=== PATIENT | female | born 1950 | race Caucasian/White ===

== ENCOUNTER 2019-05-28 16:19 | Inpatient (IN) | payer OTHER, MEDICARE ==
[2019-05-28 16:53] LABS: #Eosinphils 0.1 thou/uL (0.0-0.7); #Lymphocytes 1.2 thou/uL (1.20-3.40); #Monocytes 0.7 thou/uL (0.11-0.59); #Neutrophils 8.7 thou/uL (1.40-6.50); %Basophils 0.2 % (0.0-1.0); %Eosinophils 0.6 % (0.0-10.0); %Lymphocytes 11.3 % (21.0-51.0); %Monocytes 6.4 % (0.0-10.0); %Neutrophils 81.4 % (42.0-75.0); Hemoglobin 10.5 g/dL (12.0-16.0); Mean Corpuscular HGB CONC 34.1 g/dL (32.0-36.0); Mean Corpuscular Hemoglobin 29.8 pg (27.0-31.0); Mean Corpuscular Volume 87.3 fL (78.0-98.0); Platelet Count 178 thou/uL (130-400); RBC Distribution Width 12.2 % (11.5-14.5); Red Blood Cell (RBC) Count 3.51 mill/uL (4.20-5.40); White Blood Cell (WBC) Count 10.6 thou/uL (4.8-10.8)
[2019-05-28 17:07] LABS: ALT (SGPT) 17 U/L (8-55); AST (SGOT) 33 U/L (5-34); Albumin 3.4 g/dL (3.4-4.8); Alkaline Phosphatase 67 U/L (40-110); Anion Gap 14 mmol/L (10-20); BUN (Urea Nitrogen) 24 mg/dL (9.8-20.1); Bilirubin, Total 0.5 mg/dL (0.2-1.2); Calc. Creatinine Clearance 0 mL/min (70-130); Calcium 8.6 mg/dL (7.8-10.44); Carbon Dioxide 17 mmol/L (23-31); Chloride 109 mmol/L (98-107); Estimated GFR-MDRD 67; Globulin 2.6 g/dL (2.4-3.5); Glucose 254 mg/dL (80-115); Magnesium 1.8 mg/dL (1.6-2.6); Potassium 3.8 mmol/L (3.5-5.1); Sodium 136 mmol/L (136-145)
[2019-05-28 17:39] LABS: CKMB 22.1 ng/mL (0-6.6)
[2019-05-28] MEDS ORDERED: Senokot S 8.6-50 MG TAB PO PRN (19:41)
[2019-05-28] MEDS ORDERED: Sodium Chloride 0.9% 1,000 ML IV SCH (19:45)
[2019-05-28] MEDS ORDERED: Dextrose 50% Abboject 50 ML SYRINGE SLOW IVP PRN (19:46)
[2019-05-28] MEDS ORDERED: HumaLOG 300 UNITS/3 ML VIAL SC PRN ×2 (19:46)
[2019-05-28] MEDS ORDERED: Dextrose 5% in Water 1,000 ML IV PRN (19:46)
[2019-05-28] MEDS ORDERED: Magnesium 2 GM/50 ML BAG (IN WATER) ONE (19:54)
[2019-05-28] MEDS ORDERED: Diltiazem HCl 125 MG, Admixture Fee 1 EACH in Sodium Chloride 0.9% 100 ML IVPB SCH (20:15)
[2019-05-28 20:16] LABS: Troponin I 10.823 ng/mL (< 0.028)
[2019-05-28 20:55] VITALS: BMI 26.4
[2019-05-28] MEDS ORDERED: Diabetic Tussin 200 MG/10 ML UDCUP PO PRN (21:41)
--- NOTE | 2019-05-28 22:24 | PDOC.HHP ---
Hospitalist HPI - History of Present Illness Chest Pressure History of Present Illness: 69F presents to the ED as a transfer from [place] [facility] where she was seen for chest pressure since last night. EKG with A flutter which improved with a dose of cardizem and then transferred here after she received a dose of cardizem, lovenox, ASA and plavix. Has history of Aflutter in the past and was cardioverted about 18 months ago. Daughter reports Dr. Bliss recommended an Ablation at that time but she refused. Hx of DM. ED Course: Patient was transferred here from [place] ED, was in NSR on arrival, initial troponin at [place] elevated, 2nd troponin 8.1. Denied chest pain on arrival. Hospitalist ROS - Review of Systems Constitutional: denies: fever, chills, sweats, weakness, malaise, other Eyes: denies: pain, vision change, conjunctivae inflammation, eyelid inflammation, redness, other ENT: denies: ear pain, ear discharge, nose pain, nose discharge, nose congestion , mouth pain, mouth swelling, throat pain, throat swelling, other Respiratory: denies: cough, dry, shortness of breath, hemoptysis, SOB with excertion, pleuritic pain, sputum, wheezing, other Cardiovascular: reports: chest pain Gastrointestinal: denies: nausea, vomiting, abdominal pain, diarrhea, constipation, melena, hematochezia, other Genitourinary: denies: dysuria, frequency, incontinence, hematuria, retention, other Musculoskeletal: denies: neck pain, shoulder pain, arm pain, back pain, hand pain, leg pain, foot pain, other Skin: denies: rash, lesions, jessi, bruising, other Neurological: denies: weakness, numbness, incoordination, change in speech, confusion, seizures, other Hospitalist History - Past Medical History Cardiac: reports: Other (Atrial Flutter) Endocrine: reports: Diabetes - Past Surgical History Past Surgical History: reports: Appendectomy, Hysterectomy - Social History Alcohol: reports: None Drugs: reports: none Living Situation: With Family - Exam Eye: PERRL ENT: normocephalic atraumatic Neck: supple, no JVD Heart: RRR, normal peripheral pulses Respiratory: CTAB, normal chest expansion Gastrointestinal: soft, non-tender Extremities: no edema Skin: normal turgor Neurological: no focal deficits Musculoskeletal: normal strength Psychiatric: normal affect, A&O x 3 Hospitalist Results - Labs Result Diagrams: 05/28/19 16:43 05/28/19 16:43 Lab results: WBC 10.6 thou/uL (4.8-10.8) 05/28/19 16:43 Hgb 10.5 g/dL (12.0-16.0) L 05/28/19 16:43 Hct 30.6 % (36.0-47.0) L 05/28/19 16:43 MCV 87.3 fL (78.0-98.0) 05/28/19 16:43 Plt Count 178 thou/uL (130-400) 05/28/19 16:43 Neutrophils % 81.4 % (42.0-75.0) H 05/28/19 16:43 Sodium 136 mmol/L (136-145) 05/28/19 16:43 Potassium 3.8 mmol/L (3.5-5.1) 05/28/19 16:43 Chloride 109 mmol/L (98-107) H 05/28/19 16:43 Carbon Dioxide 17 mmol/L (23-31) L 05/28/19 16:43 BUN 24 mg/dL (9.8-20.1) H 05/28/19 16:43 Creatinine 0.84 mg/dL (0.6-1.1) 05/28/19 16:43 Glucose 254 mg/dL (80-115) H 05/28/19 16:43 Calcium 8.6 mg/dL (7.8-10.44) 05/28/19 16:43 Total Bilirubin 0.5 mg/dL (0.2-1.2) 05/28/19 16:43 AST 33 U/L (5-34) 05/28/19 16:43 ALT 17 U/L (8-55) 05/28/19 16:43 Alkaline Phosphatase 67 U/L (40-110) 05/28/19 16:43 CK-MB (CK-2) 22.1 ng/mL (0-6.6) H* 05/28/19 16:43 Troponin I 10.823 ng/mL (< 0.028) H* 05/28/19 19:38 Serum Total Protein 6.0 g/dL (6.0-8.3) 05/28/19 16:43 Albumin 3.4 g/dL (3.4-4.8) 05/28/19 16:43 Hospitalist H&P A/P - Problem (1) Flutter-fibrillation Code(s): I48.91 - UNSPECIFIED ATRIAL FIBRILLATION; I48.92 - UNSPECIFIED ATRIAL FLUTTER Status: Acute (2) Diabetes mellitus Code(s): E11.9 - TYPE 2 DIABETES MELLITUS WITHOUT COMPLICATIONS Status: Chronic (3) NSTEMI (non-ST elevated myocardial infarction) Code(s): I21.4 - NON-ST ELEVATION (NSTEMI) MYOCARDIAL INFARCTION Status: Acute - Plan Plan: Cardiology consult Lovenox at 1mg/kg Accuchecks ACHS with SS for coverage ASA 325mg po daily Check Mag, TSH, lipids Recheck basMet and CBC in AM Pepcid for GI prevention Case discussed with Dr. Pierce, agrees with plan
[2019-05-28] MEDS: Enoxaparin Sodium 60 MG/0.6 ML SYRINGE SC SCH (22:45)
[2019-05-28] MEDS: Famotidine 20 MG TAB PO SCH (22:46)
[2019-05-28 23:27] LABS: Critical Call Chem Troponin I RESULT DECREASING; Troponin I 9.428 ng/mL (< 0.028)
[2019-05-29] MEDS: Acetaminophen 325 MG TAB PO PRN ×3 (04:07→18:42)
[2019-05-29 04:53] LABS: #Lymphocytes 1.1 thou/uL (1.20-3.40); #Monocytes 0.5 thou/uL (0.11-0.59); #Neutrophils 7.2 thou/uL (1.40-6.50); %Basophils 0.5 % (0.0-1.0); %Eosinophils 0.3 % (0.0-10.0); %Lymphocytes 12.4 % (21.0-51.0); %Monocytes 5.9 % (0.0-10.0); %Neutrophils 80.9 % (42.0-75.0); Hemoglobin 11.2 g/dL (12.0-16.0); Mean Corpuscular HGB CONC 34.7 g/dL (32.0-36.0); Mean Corpuscular Hemoglobin 30.1 pg (27.0-31.0); Mean Corpuscular Volume 86.9 fL (78.0-98.0); Mean Platelet Volume 11.1 fL (7.4-10.4); Platelet Count 179 thou/uL (130-400); RBC Distribution Width 12.2 % (11.5-14.5); Red Blood Cell (RBC) Count 3.71 mill/uL (4.20-5.40); White Blood Cell (WBC) Count 8.9 thou/uL (4.8-10.8)
[2019-05-29 05:11] LABS: ALT (SGPT) 28 U/L (8-55); AST (SGOT) 32 U/L (5-34); Albumin 3.5 g/dL (3.4-4.8); Alkaline Phosphatase 77 U/L (40-110); Anion Gap 12 mmol/L (10-20); BUN (Urea Nitrogen) 18 mg/dL (9.8-20.1); Bilirubin, Total 0.6 mg/dL (0.2-1.2); Calc. Creatinine Clearance 63 mL/min (70-130); Calcium 8.6 mg/dL (7.8-10.44); Carbon Dioxide 20 mmol/L (23-31); Chloride 108 mmol/L (98-107); Cholesterol 259 mg/dl (< 200 Desired); Estimated GFR-MDRD 72; Globulin 2.7 g/dL (2.4-3.5); Glucose 238 mg/dL (80-115); HDL Cholesterol 43 mg/dL (>60 Neg Risk); LDL Cholesterol, Calculated 190 mg/dL; Potassium 4.1 mmol/L (3.5-5.1); Protein, Total 6.2 g/dL (6.0-8.3); Sodium 136 mmol/L (136-145); Triglycerides 132 mg/dL (Less than 150)
[2019-05-29] MEDS: Enoxaparin Sodium 60 MG/0.6 ML SYRINGE SC SCH ×2 (09:04→19:47)
[2019-05-29] MEDS: Aspirin 325 mg Enteric Coated Tablet PO SCH (09:06)
[2019-05-29] MEDS: Famotidine 20 MG TAB PO SCH ×2 (09:06→19:47)
[2019-05-29] MEDS ORDERED: glipiZIDE 5 MG TAB PO SCH (10:30)
[2019-05-29] MEDS ORDERED: Alogliptin 25 MG TAB PO SCH (10:45)
[2019-05-29] MEDS ORDERED: Diltiazem 125 MG in Sodium Chloride 0.9% 100 ML IVPB SCH (12:45)
[2019-05-29] MEDS ORDERED: Metoprolol Tartrate 25 MG TAB PO SCH (12:45)
[2019-05-29] MEDS ORDERED: Nitroglycerin 0.4 MG TAB (25 Tab Bottle) PO PRN (12:47)
--- NOTE | 2019-05-29 14:11 | PRG ---
DATE OF SERVICE: 05/29/2019 PRIMARY CARE PHYSICIAN: Dr. Matthew Laguna. SUBJECTIVE: A 69-year-old female with diabetes mellitus type 2, hypertension, presented to the hospital with chest discomfort along with tachyarrhythmia. She was found to have atrial flutter with rapid ventricular response. She normally follows Dr. Bliss. She intermittently goes into RVR. She denies any chest pain at this time. No lightheadedness or dizziness reported. REVIEW OF SYSTEMS: All other review of systems was reviewed and was found negative. CURRENT MEDICATIONS: Reviewed. The patient is on 1 mg/kg Lovenox. PHYSICAL EXAMINATION: VITAL SIGNS: Temperature 98.4, pulse rate of 90, respirations of 17, blood pressure of 109/64 with O2 saturation of 100% on 2 L nasal cannula. GENERAL: A 69-year-old female, in no apparent distress. LUNGS: Clear to auscultation bilaterally. No wheezing, rales, or rhonchi. HEART: S1 and S2 present. Regular rate and rhythm. No rubs or gallops. LUNGS: Clear to auscultation bilaterally. No wheezing, rales, or rhonchi. ABDOMEN: Soft and nontender. Bowel sounds present. No rebound or guarding. EXTREMITIES: No edema or calf tenderness. NEUROLOGIC: Grossly nonfocal. LABORATORY FINDINGS: CBC showed WBC 8.9 with hemoglobin 11.2, platelet 179. D-dimer was 0.58. Troponin maximum was 10.8. Creatinine 0.79 with BUN 18, sodium 136, potassium 4.1. TSH was normal. Cholesterol 259 with LDL 190. Telemetry monitoring by my review showed intermittent atrial flutter with rapid ventricular response. IMPRESSION: 1. Atrial flutter with rapid ventricular response. 2. Chest discomfort secondary to #1. 3. Elevated troponin secondary to #1/type 2 myocardial infarction present on admission. 4. Diabetes mellitus, type 2. 5. Chronic kidney disease, stage 2. 6. Chronic anemia. 7. Hyperlipidemia. PLAN: The patient will be monitored on the telemetry unit. We will start her on Cardizem drip. We will start low-dose beta blockers. Cardiology has been consulted. We will continue 1 mg/kg of Lovenox. We will resume glipizide and Januvia. Continue sliding scale. Echocardiogram is pending at this time. We will keep her n.p.o. past midnight. The patient understands the risk associated with anticoagulation. She also understands the above plan of care. Job ID: [id number]
--- NOTE | 2019-05-29 14:20 | PDOC.CPN ---
- Subjective Date: 05/29/19 Time: 14:26 Interval history: The pt seen and examined. No overnight events. No cardiac complaints. - Objective Allergies/Adverse Reactions: Allergies Allergy/AdvReac Type Severity Reaction Status Date / Time No Known Allergies Allergy Verified 05/29/19 03:49 Visit Medications: Current Medications Acetaminophen (Tylenol) 650 mg PO Q4H PRN PRN Reason: Headache/Fever/Mild Pain (1-3) Last Admin: 05/29/19 09:10 Dose: 650 mg Alogliptin Benzoate (Alogliptin) 25 mg PO DAILY [facility] Aspirin (Ecotrin) 325 mg PO DAILY [facility] Last Admin: 05/29/19 09:06 Dose: 325 mg Atorvastatin Calcium (Lipitor) 40 mg PO [facility] Dextrose/Water (Dextrose 50%) 25 gm SLOW IVP PRN PRN PRN Reason: Hypoglycemia Diltiazem HCl (Cardizem) 5 mg SLOW IVP NOW [facility] Stop: 05/29/19 14:45 Last Admin: 05/29/19 12:50 Dose: 5 mg Enoxaparin Sodium (Lovenox) 60 mg SC 0900,2100 [facility] Last Admin: 05/29/19 09:04 Dose: Not Given Famotidine (Pepcid) 20 mg PO BID [facility] Last Admin: 05/29/19 09:06 Dose: 20 mg Glipizide (Glucotrol) 5 mg PO BID-[facility] Glucagon (Glucagon) 1 mg IM PRN PRN PRN Reason: Hypoglycemia Guaifenesin (Robitussin Sf) 200 mg PO Q4H PRN PRN Reason: Cough Last Admin: 05/28/19 22:43 Dose: 200 mg Dextrose/Water (D5w) 1,000 mls @ 0 mls/hr IV .Q0M PRN PRN Reason: Hypoglycemia Diltiazem HCl 125 mg/ Sodium (Chloride) 125 mls @ 5 mls/hr IVPB INF [facility]; Protocol Insulin Human Lispro (Humalog) 0 units SC .MILD SLIDING SCALE PRN PRN Reason: Mild Correctional Scale Insulin Human Lispro (Humalog) 0 units SC .BEDTIME SLIDING SC PRN PRN Reason: Bedtime Correctional Scale Metoprolol Tartrate (Lopressor) 25 mg PO BID [facility] Metoprolol Tartrate (Lopressor) 25 mg PO NOW [facility] Stop: 05/29/19 14:45 Last Admin: 05/29/19 12:50 Dose: 25 mg Nitroglycerin (Nitrostat) 0.4 mg PO Q5MIN PRN PRN Reason: Chest Pain Senna/Docusate Sodium (Senokot S) 2 tab PO BID PRN PRN Reason: Constipation Vital Signs & Weight: Vital Signs Temp Pulse Resp BP Pulse Ox 05/29/19 11:03 98.4 F 90 17 101/58 L 100 05/29/19 07:10 100 05/29/19 07:00 98.1 F 82 15 109/64 100 05/29/19 03:56 98.8 F 98 18 124/65 95 Weight 131 lb 3.2 oz - Physical Exam General: alert & oriented x3 HEENT: mucus membranes moist Neck: supple neck Cardiac: regular rate and rhythm, S1/S2 Lungs: clear to auscultation Neuro: cranial nerve 2-12 intact - Labs Result Diagrams: 05/29/19 04:17 05/29/19 04:17 Troponin/CKMB CK-MB (CK-2) 22.1 ng/mL (0-6.6) H* 05/28/19 16:43 Troponin I 9.428 ng/mL (< 0.028) H* 05/28/19 22:43 - Telemetry Sinus rhythms and dysrhythmias: sinus rhythm - Assessment/Plan Assessment/Plan: 1. Aflutter with RVR for 2 hrs on 05/29/2019 - converted back to SR around 1400 on 05/29/2019; on Metoprolol 25mg BID; on Lovenox; Echo result is pending 2. Elevated trop - may need further cardiac eval when her VS is more stable; on ASA,Lovenox, BBlocker 3. HLD - LDL is > 190; Lipitor 40mg was started from today DM type 2 - managed by PCP 3. Anemia MAR reviewed * Dr Bliss's pt
[2019-05-29] MEDS: glipiZIDE 5 MG TAB PO SCH (16:17)
[2019-05-29] MEDS: Metoprolol Tartrate 25 MG TAB PO SCH (19:46)
[2019-05-29] MEDS: Atorvastatin Calcium 40 MG TAB PO SCH (19:47)
--- NOTE | 2019-05-30 03:36 | CON ---
DATE OF CONSULTATION: 05/29/2019 INDICATION FOR CONSULTATION: A 69-year-old female with new onset atrial tachycardia or atrial flutter with rapid ventricular response and chest tightness. HISTORY OF PRESENT ILLNESS: This 69-year-old female has been seen in the past back in 2016, at which time, she was having some tachycardia at that time, also sought to be atrial tachycardia or atrial flutter. She was advised to undergo an ablation, but she opted just to continue with medical management. She was somewhat afraid to undergo the procedure. She was last seen in the office by Dr. Bliss in January of 2017, at which time, she was taking medications just metoprolol. She was taking 12.5 mg twice a day and since that time she has had intermittent atrial tachycardia or either atrial flutter. It lasts for a short period of time, but yesterday apparently the episodes lasted longer, and she presented to the emergency room and then was given IV diltiazem, and the rate converted back to sinus rhythm but then again returned to the atrial tachycardia, and she was then transferred here and was admitted. Since this morning, she had one episode from noon to 2 o'clock and then again has themselves converted back to sinus rhythm and has remained in sinus rhythm at this time. She did have some chest tightness during the procedure with the chest discomfort, and she did have an elevated troponin I. This morning her troponin I is 9.4, on admission it was already 8.1, increased up to 10.8, and back down to 9.8. Her MB was 22.1. Certainly could be compatible with tachycardia or she may have underlying coronary artery disease with what appeared to be a [id number] elevation or type 2 myocardial infarction. She did not have any EKG changes to indicate ischemia. There were no ST-segment changes noted. At this time, she remains comfortable as long as she is not having the pain. The tachycardia, she seems to be relatively stable. I had discussion with her today about proceeding most likely with an ablation of the atrial tachycardia, but she also may need to undergo a repeat stress test. This was normal in 2016, but given her chest pressure and the abnormal cardiac enzymes, she may need to undergo cardiac catheterization to truly evaluate whether or not she may have underlying coronary artery disease as this could be the etiology of the repeat episodes of the atrial tachycardia or atrial flutter. PAST MEDICAL HISTORY: Significant for the atrial tachycardia or atrial flutter. She also has history of diabetes. PAST SURGICAL HISTORY: She has had hysterectomy and appendectomy. SOCIAL HISTORY: There is no history of alcohol or tobacco abuse. She lives at home with her family. 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 REVIEW OF SYSTEMS: Relatively unremarkable except what is noted in the history of present illness. FAMILY HISTORY: Unremarkable. PHYSICAL EXAMINATION: GENERAL: Reveals a well-developed, well-nourished female, in no acute distress. She is alert. She is oriented. She is very pleasant. She has no complaints at this time. VITAL SIGNS: Her vital signs are stable. Blood pressure is 112/55, heart rates in the 80s, it shows a sinus rhythm, and respiratory rate is 18. She is afebrile. HEENT: Shows the head to be normocephalic and atraumatic. Carotid pulses are present without any bruits. CHEST: Clear to auscultation without rales, rhonchi, or wheezing. CARDIOVASCULAR: At this time reveals a regular rate and rhythm. She has a normal S1, S2. There was no significant S3 or S4. There are no significant murmurs, heaves, thrills, bruits, or rubs. ABDOMEN: Soft, nontender. Positive bowel sounds are present. No organomegaly or masses are noted. EXTREMITIES: Femoral pulses are present. Pedal pulses are present. NEUROLOGICAL: She appears to be fully intact. LABORATORY DATA: Laboratory data is noted for the cardiac enzymes. Otherwise, the sodium was 136, potassium was 4.1, BUN was 18 with a creatinine of 0.79, blood sugar was 238, total cholesterol was 259. Her LDL level also was significantly elevated at 190, HDL level was 43, hemoglobin was 11.2, WBC of 8.9, and platelet count was 179,000. IMPRESSION: 1. Atrial tachycardia or atrial flutter associated with some chest tightness. We are trying to control the heart rate at this time with medical management most likely she will need to undergo an ablation of the atrial tachycardia or atrial flutter. Long-term will be the best option. At this time, we will continue her p.o. diltiazem or a IV drip as long she is able to tolerate it. She was also started on low-dose of metoprolol. We will continue the Lovenox. Also discussed her case with Dr. Bliss. She may need to undergo cardiac catheterization, especially with the elevated cardiac enzymes and the chest pressure associated with the atrial tachycardia or flutter. I will keep her n.p.o. after midnight for possible cardiac catheterization tomorrow. Also Dr. Bliss can discuss with Dr. Butler about proceeding with possible ablation once she has been ruled out for underlying coronary artery disease. 2. Diabetes. This will be dealt with by the primary care service. 3. Hypercholesterolemia. She will continue on her statin medications. 4. Her elevated cholesterol and LDL is significantly elevated at 190. It is uncertain whether or not she has actually been taking her medications, but will certainly need to be on statin to decrease the LDL level. Overall, given her history of atrial tachycardia or flutter with chest tightness, diabetes, and hypercholesterolemia will suggest she undergo a cardiac catheterization and then most likely need to undergo an ablation of the atrial tachycardia. Job ID: [id number]
[2019-05-30 04:36] LABS: #Lymphocytes 1.2 thou/uL (1.20-3.40); #Monocytes 0.7 thou/uL (0.11-0.59); #Neutrophils 7.2 thou/uL (1.40-6.50); %Basophils 0.1 % (0.0-1.0); %Eosinophils 0.4 % (0.0-10.0); %Lymphocytes 13.1 % (21.0-51.0); %Monocytes 7.6 % (0.0-10.0); %Neutrophils 78.9 % (42.0-75.0); Hemoglobin 10.4 g/dL (12.0-16.0); Mean Corpuscular HGB CONC 34.1 g/dL (32.0-36.0); Mean Corpuscular Hemoglobin 29.7 pg (27.0-31.0); Mean Corpuscular Volume 87.2 fL (78.0-98.0); Mean Platelet Volume 10.9 fL (7.4-10.4); Platelet Count 182 thou/uL (130-400); RBC Distribution Width 12.3 % (11.5-14.5); White Blood Cell (WBC) Count 9.2 thou/uL (4.8-10.8)
[2019-05-30 04:57] LABS: ALT (SGPT) 50 U/L (8-55); AST (SGOT) 39 U/L (5-34); Albumin 3.4 g/dL (3.4-4.8); Alkaline Phosphatase 90 U/L (40-110); Anion Gap 11 mmol/L (10-20); BUN (Urea Nitrogen) 18 mg/dL (9.8-20.1); Bilirubin, Total 0.8 mg/dL (0.2-1.2); Calc. Creatinine Clearance 57 mL/min (70-130); Calcium 8.7 mg/dL (7.8-10.44); Carbon Dioxide 21 mmol/L (23-31); Chloride 108 mmol/L (98-107); Estimated GFR-MDRD 64; Globulin 2.7 g/dL (2.4-3.5); Glucose 195 mg/dL (80-115); Potassium 3.9 mmol/L (3.5-5.1); Protein, Total 6.1 g/dL (6.0-8.3); Sodium 136 mmol/L (136-145)
[2019-05-30] MEDS: Alogliptin 25 MG TAB PO SCH (05:50)
[2019-05-30] MEDS: glipiZIDE 5 MG TAB PO SCH ×2 (05:50→17:09)
[2019-05-30] MEDS: Enoxaparin Sodium 60 MG/0.6 ML SYRINGE SC SCH ×2 (05:50→19:54)
[2019-05-30] MEDS: Famotidine 20 MG TAB PO SCH ×2 (05:51→19:53)
[2019-05-30] MEDS: Metoprolol Tartrate 25 MG TAB PO SCH ×2 (05:52→19:53)
[2019-05-30] MEDS: Aspirin 325 mg Enteric Coated Tablet PO SCH (05:52)
[2019-05-30] MEDS ORDERED: FARXIGA 5 MG PO SCH (09:00)
[2019-05-30] MEDS ORDERED: Lidocaine 1% (PF) 30 ML VIAL ONE (10:18)
[2019-05-30] MEDS ORDERED: Fentanyl 100 MCG/2 ML VIAL ONE (10:45)
[2019-05-30] MEDS ORDERED: Midazolam HCl 2 mg/2 ml Vial ONE (10:45)
[2019-05-30] MEDS ORDERED: Sodium Chloride 0.9% 200 ML IV PRN (11:11)
[2019-05-30] MEDS ORDERED: Acetaminophen/Codeine 30-300mg Tablet PO PRN (11:11)
[2019-05-30] MEDS ORDERED: Sodium Chloride 0.9% 500 ML IV SCH (11:15)
[2019-05-30] MEDS ORDERED: Iopamidol 370 76% 100 ML VIAL ONE (11:58)
[2019-05-30] MEDS: Atorvastatin Calcium 40 MG TAB PO SCH (19:53)
[2019-05-31] MEDS ORDERED: ALPRAZolam 0.25 MG TAB PO SCH (04:30)
[2019-05-31 04:51] LABS: #Eosinphils 0.1 thou/uL (0.0-0.7); #Lymphocytes 0.9 thou/uL (1.20-3.40); #Monocytes 0.6 thou/uL (0.11-0.59); #Neutrophils 6.1 thou/uL (1.40-6.50); %Basophils 0.4 % (0.0-1.0); %Eosinophils 1.8 % (0.0-10.0); %Lymphocytes 12.1 % (21.0-51.0); %Monocytes 7.2 % (0.0-10.0); %Neutrophils 78.7 % (42.0-75.0); Hemoglobin 10.1 g/dL (12.0-16.0); Mean Corpuscular HGB CONC 32.7 g/dL (32.0-36.0); Mean Corpuscular Hemoglobin 28.5 pg (27.0-31.0); Mean Platelet Volume 11.6 fL (7.4-10.4); Platelet Count 165 thou/uL (130-400); RBC Distribution Width 12.3 % (11.5-14.5); Red Blood Cell (RBC) Count 3.54 mill/uL (4.20-5.40); White Blood Cell (WBC) Count 7.7 thou/uL (4.8-10.8)
[2019-05-31 05:06] LABS: Anion Gap 11 mmol/L (10-20); BUN (Urea Nitrogen) 20 mg/dL (9.8-20.1); Calc. Creatinine Clearance 59 mL/min (70-130); Calcium 8.6 mg/dL (7.8-10.44); Carbon Dioxide 21 mmol/L (23-31); Chloride 108 mmol/L (98-107); Estimated GFR-MDRD 66; Glucose 238 mg/dL (80-115); Potassium 4.1 mmol/L (3.5-5.1); Sodium 136 mmol/L (136-145)
[2019-05-31] MEDS ORDERED: Metoprolol Tartrate 5 MG/5 ML VIAL IVP SCH (07:00)
[2019-05-31] MEDS: glipiZIDE 10 MG TAB PO SCH ×2 (07:46→16:43)
[2019-05-31] MEDS: glipiZIDE 5 MG TAB PO SCH (07:47)
[2019-05-31] MEDS ORDERED: Clopidogrel Bisulfate 75 MG TAB PO SCH (09:00)
[2019-05-31] MEDS: Aspirin 325 mg Enteric Coated Tablet PO SCH (09:35)
[2019-05-31] MEDS: Alogliptin 25 MG TAB PO SCH (09:35)
[2019-05-31] MEDS: Metoprolol Tartrate 25 MG TAB PO SCH (09:36)
[2019-05-31] MEDS: Famotidine 20 MG TAB PO SCH (09:36)
[2019-05-31] MEDS: ALPRAZolam 0.5 MG TAB PO SCH ×2 (09:36→14:43)
[2019-05-31] MEDS: Enoxaparin Sodium 60 MG/0.6 ML SYRINGE SC SCH (09:38)
[2019-05-31 11:56] VITALS: TEMP 97.4
--- NOTE | 2019-05-31 14:06 | PDOC.CPN ---
- Subjective Date: 05/31/19 Time: 14:10 Interval history: The pt seen and examined. No overnight events. No cardiac complaints. - Objective Allergies/Adverse Reactions: Allergies Allergy/AdvReac Type Severity Reaction Status Date / Time No Known Allergies Allergy Verified 05/29/19 03:49 Visit Medications: Current Medications Acetaminophen (Tylenol) 650 mg PO Q4H PRN PRN Reason: Headache/Fever/Mild Pain (1-3) Last Admin: 05/29/19 18:42 Dose: 650 mg Acetaminophen/Codeine Phosphate (Tylenol #3) 1 tab PO Q4H PRN PRN Reason: Mild Pain (1-3) Last Admin: 05/30/19 19:50 Dose: 1 tab Alogliptin Benzoate (Alogliptin) 25 mg PO DAILY [facility] Last Admin: 05/31/19 09:35 Dose: 25 mg Alprazolam (Xanax) 0.5 mg PO TID [facility] Last Admin: 05/31/19 09:36 Dose: 0.5 mg Aspirin (Ecotrin) 325 mg PO DAILY [facility] Last Admin: 05/31/19 09:35 Dose: 325 mg Atorvastatin Calcium (Lipitor) 40 mg PO HS [facility] Last Admin: 05/30/19 19:53 Dose: 40 mg Clopidogrel Bisulfate (Plavix) 75 mg PO DAILY [facility] Last Admin: 05/31/19 09:36 Dose: 75 mg Dextrose/Water (Dextrose 50%) 25 gm SLOW IVP PRN PRN PRN Reason: Hypoglycemia Enoxaparin Sodium (Lovenox) 60 mg SC 0900,2100 [facility] Last Admin: 05/31/19 09:38 Dose: 60 mg Famotidine (Pepcid) 20 mg PO BID [facility] Last Admin: 05/31/19 09:36 Dose: 20 mg Glipizide (Glucotrol) 10 mg PO BID-[facility] Last Admin: 05/31/19 07:46 Dose: 10 mg Glucagon (Glucagon) 1 mg IM PRN PRN PRN Reason: Hypoglycemia Guaifenesin (Robitussin Sf) 200 mg PO Q4H PRN PRN Reason: Cough Last Admin: 05/28/19 22:43 Dose: 200 mg Dextrose/Water (D5w) 1,000 mls @ 0 mls/hr IV .Q0M PRN PRN Reason: Hypoglycemia Sodium Chloride (Normal Saline 0.9%) 200 mls @ 0 mls/hr IV ONE PRN PRN Reason: SBP < 90 Stop: 06/01/19 11:12 Sodium Chloride (Normal Saline 0.9%) 250 mls @ 150 mls/hr IV .Q1H40M [facility] Stop: 05/31/19 15:54 Insulin Human Lispro (Humalog) 0 units SC .MILD SLIDING SCALE PRN PRN Reason: Mild Correctional Scale Insulin Human Lispro (Humalog) 0 units SC .BEDTIME SLIDING SC PRN PRN Reason: Bedtime Correctional Scale Isosorbide Mononitrate (Imdur) 60 mg PO DAILY [facility] Last Admin: 05/31/19 09:37 Dose: 60 mg Metoprolol Tartrate (Lopressor) 25 mg PO BID [facility] Last Admin: 05/31/19 09:36 Dose: 25 mg Nitroglycerin (Nitrostat) 0.4 mg PO Q5MIN PRN PRN Reason: Chest Pain Last Admin: 05/31/19 07:30 Dose: 0.4 mg Farxiga 5mg Tab 0 each PO DAILY [facility] Ranolazine (Ranexa) 500 mg PO BID [facility] Last Admin: 05/31/19 09:35 Dose: 500 mg Senna/Docusate Sodium (Senokot S) 2 tab PO BID PRN PRN Reason: Constipation Temazepam (Restoril) 30 mg PO [facility] Vital Signs & Weight: Vital Signs Temp Pulse Resp BP Pulse Ox 05/31/19 11:42 97.4 F L 125 H 20 105/56 L 98 05/31/19 07:19 98.3 F 97 25 H 117/64 95 05/31/19 03:45 98.3 F 88 18 127/71 96 Weight 131 lb 3.2 oz - Physical Exam General: alert & oriented x3 HEENT: mucus membranes moist Neck: supple neck Cardiac: regular rate and rhythm, S1/S2 Lungs: clear to auscultation Neuro: cranial nerve 2-12 intact Abdomen: unremarkable - Labs Result Diagrams: 05/31/19 04:12 05/31/19 04:12 Troponin/CKMB CK-MB (CK-2) 22.1 ng/mL (0-6.6) H* 05/28/19 16:43 Troponin I 9.428 ng/mL (< 0.028) H* 05/28/19 22:43 - Telemetry Sinus rhythms and dysrhythmias: sinus rhythm - Assessment/Plan Assessment/Plan: 1. CAD with severe 3V stenosis on 05/30/2019 - the pt plans to tx to [facility]; On Metoprolol, ASA, Lipitor, and Isosorbide 2. Aflutter with RVR for 2 hrs on 05/29/2019 - converted back to SR around 1400 on 05/29/2019; on Metoprolol 25mg BID; on Lovenox; Repeat episode of atrial flutter > 1 hr. terminated after carotid massage.Hr 120-> 70's and NSR. 3. HLD - LDL is > 190; on Lipitor 40mg 4 DM type 2 - managed by PCP 5. Anemia 6. Anxiety 7. Tachycardia - ST; will give 250ml bolus Echo : nl. EF, mild MR,TR MAR reviewed Pt. seen and eval. by me. I agree with the A/P by the PAPER TESTER. I discussed the cath findings with the pt. and her family. The LAD has diffuse disease throughout, the left circumflex has serial lesions of 75-90%. This could be a reasonable target for stents of CABG, the RCA is < 2mm with > 70% stenosis. Possible stent but very small vessel. Not a good candidate for CABG to this vessel due to the small size. The LAD has so much diffuse disease that I doubt anything can be done. She will be transferred to [place] for possible high risk PTCA/Stent or CABG. The EF is well preserved.
[2019-05-31] MEDS ORDERED: Sodium Chloride 0.9% 250 ML IV SCH (14:15)
[2019-05-31 16:39] VITALS: BP 105/57
[2019-05-31] MEDS ORDERED: Temazepam 15 MG CAP PO SCH (21:00)
== END 2019-05-31 17:32 | disposition short-term general hospital (02) | DRG 281 ==
LOC: ERS 16:19 → 2NO 17:59
PROVIDERS: ADMIT Specialist; ATTEND Specialist
PROC: 4A023N7 Measurement of Cardiac Sampling and Pressure, Left Heart, Percutaneous Approach (ICD-10-PCS; principal; 2019-05-30)
PROC: B2111ZZ Fluoroscopy of Multiple Coronary Arteries using Low Osmolar Contrast (ICD-10-PCS; 2019-05-30)
PROC: B2151ZZ Fluoroscopy of Left Heart using Low Osmolar Contrast (ICD-10-PCS; 2019-05-30)
DX: I48.92 Unspecified atrial flutter (principal); I21.A1 Myocardial infarction type 2; I13.0 Hypertensive heart and chronic kidney disease with heart failure and stage 1 through stage 4 chronic kidney disease, or unspecified chronic kidney disease; E11.22 Type 2 diabetes mellitus with diabetic chronic kidney disease; I50.9 Heart failure, unspecified; D63.1 Anemia in chronic kidney disease; F41.9 Anxiety disorder, unspecified; I25.10 Atherosclerotic heart disease of native coronary artery without angina pectoris; N18.2 Chronic kidney disease, stage 2 (mild); I48.91 Unspecified atrial fibrillation; E78.5 Hyperlipidemia, unspecified; E78.00 Pure hypercholesterolemia, unspecified; I25.2 Old myocardial infarction; Z95.0 Presence of cardiac pacemaker; Z90.710 Acquired absence of both cervix and uterus; Z95.1 Presence of aortocoronary bypass graft; Z79.01 Long term (current) use of anticoagulants
CPT/HCPCS: 36415; 36416; 80048; 80053; 80061; 82553; 83735; 84443; 84484; 85025; 85379; 93005; 93010; 93306; 93458; 94760; 96374; 96375; 99152; C1769; J1644; J1650; J2001; J2250; J3010; J3475; Q9967

== ENCOUNTER 2021-02-27 09:39 | Outpatient (CLI) | payer MEDICARE ==
[~2021-02-27 09:39] MED LIST: Iopamidol 370 76% 100 ML VIAL ONE
== END 2021-02-27 09:40 | disposition home or self-care (01) ==
LOC: BICCT 09:39
PROVIDERS: ATTEND Specialist
DX: R59.0 Localized enlarged lymph nodes (principal)
CPT/HCPCS: 71260; Q9967

== ENCOUNTER 2021-03-05 08:08 | Outpatient (CLI) | payer MEDICARE | END 2021-03-05 08:09 | disposition home or self-care (01) | LOC: BICMAMMO 08:08 | PROVIDERS: ATTEND Specialist | DX: Z12.31 Encounter for screening mammogram for malignant neoplasm of breast (principal); Z80.3 Family history of malignant neoplasm of breast | CPT/HCPCS: 77063; 77067 ==